=== PATIENT | male | born 1995 ===

== ENCOUNTER 2018-06-06 11:17 | Emergency (ER) | payer OTHER ==
--- NOTE | 2018-06-06 11:56 | EKG ---
Test Date: 2018-06-06 Test Time: 11:47:57 [place] Technician: GABRIEL MEASUREMENT RESULTS: Intervals: Rate: 59 FL: 190 QRSD: 88 QT: 408 QTc: 403 [place]: P: 57 FL: 190 QRS: 86 T: 67 INTERPRETIVE STATEMENTS: Sinus bradycardia with sinus arrhythmia Otherwise normal ECG No previous ECG available for comparison Electronically Signed On 06-06-18 11:56:34 FINANCIAL ANALYST ACCOUNTANT by Casimiro Cruz
[2018-06-06 11:58] LABS: Absolute Lymphocytes (CBC) 1.1 K/uL (0.7-4.9); Absolute Monocytes 1.3 K/uL (0.1-1.3); Absolute Neutrophil 13.3 K/uL (1.8-8.0); Basophils % 0.1 % (0-1.3); Eosinophils % 0.4 % (0-4.4); Hematocrit 48.3 % (39.6-49.0); Lymphocytes % 6.8 % (15.3-44.8); MPV 8.8 fL (7.6-11.3); Monocytes % 8.5 % (3.3-12.3); RBC Red Blood Cell Count 5.51 M/uL (4.33-5.43)
[2018-06-06] MEDS ORDERED: NA CHLORIDE 0.9% 1,000 ML ONE (12:03)
[2018-06-06] MEDS ORDERED: METHYLPREDNISOLONE 125 MG INJ ONE (12:03)
[2018-06-06 12:22] LABS: Potassium 4.5 mmol/L (3.5-5.1)
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
== END 2018-06-06 13:42 | disposition home or self-care (01) ==
LOC: ER 11:17
DX: R55 Syncope and collapse (principal)
CPT/HCPCS: 36415; 80048; 82550; 85025; 93005; 96361; 96374; 99284; J2930; J7030